=== PATIENT | male | born 1995 | race Caucasian/White ===

== ENCOUNTER 2016-10-26 09:40 | Emergency (ER) | payer BC, MEDICAID ==
[~2016-10-26] VITALS: Ht 177.8 cm; Wt 68.0 kg
[~2016-10-26 09:40] MED LIST: CLARITIN 10MG T10 MG PO; KEFLEX500 M1 PO; TYLENOL W/CODEI1 TA2 PO
--- OUTSIDE RECORDS SUMMARY | 2016-10-26 09:44 | External Medical Summary Rpt ---
Author Author , ZENON YARBROUGH Address Unknown Phone [email or web address] Care Team Providers Care Shader And Toner Name Role Phone LOVE ALL, LOVE ALL Unavailable Unavailable [facility], [facility] Un[facility] Unavailable [facility]available [facility], [facility] LEONARDO GRE, Unavailable Unavailable LEONARDO GRE LEONARDO GRE, Unavailable Unavailable [facility] KENJI BARRETT, Unavailable Unavailable PHILLIP JAM REILLYEK MOH, BRYON MOH Unavailable Unavailable Purpose Continuity of Care Document - 12-18-2014 through 2016 Problems Code Diagnosis DOS Provider Status [id number] ANISOCORIA 10-30-2015 [facility] H527 UNSPECIFIED 09-26-2015 [facility] REFRACTION H538 OTHER 09-26-2015 [facility] [facility] S H5704 MYDRIASIS 09-26-2015 [facility] 65400 OTHER 12-18-2014 [facility] VISUAL GRE DISTORTIONS AND ENTOPTIC PHENOMENA 58402 OTHER 12-18-2014 [facility] VITREOUS GRE OPACITIES 21814 PAIN IN [place] 12-18-2014 [facility] Procedures Procedure DOS Code Location Performer Comment [facility] [address] UNCLASSIF [id number] [facility] I[facility] DRUGS 6 [place] [address] [place] [facility] HEAD/BRAI 6 MEDICAL N W/O & IMAGING W/CONTRAS ASS T MATERIAL Encounters Encounter Start End Date Code Location Performer Type Date OFFICE 27207 STACI PHILLIP OUTPATIEN 6 6 EYE JAM T [facility] CENTER, MINUTES [facility] - 6 6 [facility] OUTPATIEN INC [facility] JENNIE - 6 6 [facility] OUTPATIEN INC T EMERGENCY 91682 JENN[facility] 6 6 [facility] DEPARTMEN INC T VISIT LOW/MODER SEVERITY EMERGENCY 21716 MIL[facility]ROS [facility] 6 6 PHYSICIAN DEPARTMEN S, [facility] T VISIT MODERATE SEVERITY OFFICE 34732 [facility] 5 5 GRE GRE T VISIT 15 MINUTES
--- OUTSIDE RECORDS SUMMARY | 2016-10-26 09:44 | External Medical Summary Rpt ---
Author Author , ZENON YARBROUGH Address Unknown Phone [email or web address] Care Team Providers Care Regulatory Leader Name Role Phone LOVE ALL, LOVE ALL Unavailable Unavailable [facility] Unavailable Unavailable INC, [facility], Unavailable Unavailable [facility]., [facility] Unavailable Unavailable IM[facility]ING [facility], [facility] LEONARDO GRE, Unavailable Unavailable LEONARDO GRE LEONARDO GRE, Unavailable Unavailable LEONARDO GRE KENJI BARRETT, Unavailable Unavailable PHILLIP JAM REILLYEK MOH, BRYON MOH Unavailable Unavailable Purpose Continuity of Care Document - 12-18-2014 through 2016 Problems Code Diagnosis DOS Provider Status [id number] ANISOCORIA 10-30-2015 [facility] H527 UNSPECIFIED 09-26-2015 [facility] INC REFRACTION H538 OTHER 09-26-2015 [facility] S H5704 MYDRIASIS 09-26-2015 [facility] 62075 OTHER 12-18-2014 LEON[facility]O VISUAL GRE DISTORTIONS AND ENTOPTIC PHENOMENA 59180 OTHER 12-18-2014 LE[facility]O VITREOUS GRE OPACITIES 83573 PAIN IN OR 12-18-2014 [facility] GRE Procedures Procedure DOS Code Location Performer Comment DETERMINA 87895 [facility]IV [facility], [facility] UNCLASSIF [id number] [facility] IED DRUGS [place] [address] [place] [facility] HEAD/BRAI 6 MEDICAL N W/O & IMAGING W/CONTRAS ASS T MATERIAL Encounters Encounter Start End Date Code Location Performer Type Date OFFICE 39772 STACI PHILLIP OUTPATIEN 6 6 EYE JAM T [facility], [facility]ES [facility] JENN[facility] - 6 6 [facility] OUTPATIEN INC [facility] JENNIE - 6 6 [facility] OUTPATIEN INC T EMERGENCY 56783 JENNIE 6 6 [facility] DEPARTMEN INC T VISIT LOW/MODER SEVERITY EMERGENCY 68828 [facility] 6 6 PHYSICIAN DEPARTMEN S, [facility] T VISIT MODERATE SEVERITY OFFICE 29022 [facility] 5 5 GRE GRE T VISIT 15 MINUTES
--- OUTSIDE RECORDS SUMMARY | 2016-10-26 09:45 | External Medical Summary Rpt ---
Author Author , ZENON YARBROUGH Address Unknown Phone [email or web address] Care Team Providers Care Tire Spotter Name Role Phone LOVE ALL, LOVE ALL Unavailable Unavailable [facility] Un[facility] Unavailable INC, [facility], Unavailable Unavailable [facility] Unavailable Unavailable IM[facility]ING [facility], [facility] LEONARDO GRE, Unavailable Unavailable LEONARDO GRE LEONARDO GRE, Unavailable Unavailable LEONARDO GRE KENJI BARRETT, Unavailable Unavailable PHILLIP JAM SADEK MOH, SADEK MOH Unavailable Unavailable Purpose Continuity of Care Document - 12-18-2014 through 2016 Problems Code Diagnosis DOS Provider Status [id number] ANISOCORIA 10-30-2015 [facility] H527 UNSPECIFIED 09-26-2015 [facility] REFRACTION H538 OTHER 09-26-2015 [place] [facility] S H5704 MYDRIASIS 09-26-2015 [facility] 86876 OTHER 12-18-2014 LEONARDO VISUAL GRE DISTORTIONS AND ENTOPTIC PHENOMENA 81665 OTHER 12-18-2014 LEONARDO VITREOUS GRE OPACITIES 08575 PAIN IN [place] 12-18-2014 [facility] Procedures Procedure DOS Code Location Performer Comment DETERMINA 86532 [facility], [facility] UNCLASSIF [id number] JENNIE JENNIE IED DRUGS [place] [address] [place] LOVE ALL HEAD/BRAI 6 MEDICAL N W/O & IMAGING W/CONTRAS ASS T MATERIAL Encounters Encounter Start End Date Code Location Performer Type Date OFFICE 56[address] [facility] 6 6 EYE JAM T [facility] C[facility], MINUTES [facility] JENNIE - 6 6 [facility] OUTPATIEN INC T EMERGENCY 31753 JENNIE 6 6 [facility] DEPARTMEN INC T VISIT LOW/MODER SEVERITY EMERGENCY 78729 MIL[facility]ROS [facility] 6 6 [facility]my [facility] T VISIT MODERATE SEVERITY HOSPITAL [facility]ENN[facility] - 6 6 [facility] T OFFICE [address] [facility] GRE GRE T VISIT 15 MINUTES
--- OUTSIDE RECORDS SUMMARY | 2016-10-26 09:45 | External Medical Summary Rpt ---
Demographics Preferred Language Sami Marital Status Unknown Mandaen Affiliation Unknown Race Unknown Ethnic Group Unknown Author Author , ZENON YARBROUGH Address Unknown Phone Immunization Unable to retrieve immunization data due to connection failure with Immunization Registry. Please try again later.
--- OUTSIDE RECORDS SUMMARY | 2016-10-26 09:45 | External Medical Summary Rpt ---
Author Author , ZENON YARBROUGH Address Unknown Phone [email or web address] Team Providers Care Rigging Loft Mechanic Name Role Phone LOVE ALL, LOVE ALL Unavailable Unavailable [facility] Unavailable Unavailable INC, [facility], Unavailable Unavailable [facility]., [facility] Unavailable Unavailable IM[facility], [facility] LEONARDO GRE, Unavailable Unavailable LEOANRDO GRE LEONARDO GRE, Unavailable Unavailable LEONARDO GRE KENJI BARRETT, Unavailable Unavailable PHILLIP JAM SADEK MOH, SADEK MOH Unavailable Unavailable Purpose Continuity of Care Document - 12-18-2014 through 2016 Problems Code Diagnosis DOS Provider Status [id number] ANISOCORIA 10-30-2015 [facility] H527 UNSPECIFIED 09-26-2015 [facility] INC REFRACTION H538 OTHER 09-26-2015 [facility] S H5704 MYDRIASIS 09-26-2015 [facility] 31927 OTHER 12-18-2014 LEONARDO VISUAL GRE DISTORTIONS AND ENTOPTIC PHENOMENA 79819 OTHER 12-18-2014 LE[facility]O VITREOUS GRE OPACITIES 43333 PAIN IN [place] 12-18-2014 [facility] Procedures Procedure DOS Code Location Performer Comment DETERMINA [address] [facility], [facility] UNCLASSIF [id number] JENNIE JENNIE IED DRUGS 6 [place] [address] [place] [facility] HEAD/BRAI 6 MEDICAL N W/O & IMAGING W/CONTRAS ASS T MATERIAL Encounters Encounter Start End Date Code Location Performer Type Date OFFICE 31467 [facility] 6 6 EYE JAM T [facility] CENTER, MINUTES [facility] JENNIE - 6 6 [facility] OUTPATIEN INC T EMERGENCY 42471 JENNIE 6 6 [facility] DEPARTMEN INC T VISIT LOW/MODER SEVERITY EMERGENCY 28570 [facility]ROS [facility] 6 6 [facility] T VISIT MODERATE SEVERITY HOSPITAL JENNIE - 6 6 [facility] T OFFICE [address]137 [facility] 5 5 GRE GRE T VISIT 15 MINUTES
--- OUTSIDE RECORDS SUMMARY | 2016-10-26 09:45 | External Medical Summary Rpt ---
Author Author ZENON An, [employer] Address Unknown Phone Unavailable
--- OUTSIDE RECORDS SUMMARY | 2016-10-26 09:45 | External Medical Summary Rpt ---
Author Author ZENON An, [employer] Address Unknown Phone Unavailable
--- OUTSIDE RECORDS SUMMARY | 2016-10-26 09:45 | External Medical Summary Rpt ---
Demographics Preferred Language Nepali Marital Status Unknown Jain Affiliation Unknown Race Unknown Ethnic Group Unknown Author Author , ZENON YARBROUGH Address Unknown Phone Immunization Unable to retrieve immunization data due to connection failure with Immunization Registry. Please try again later.
--- NOTE | 2016-10-26 10:06 | Urgent Treatment Center Report ---
History of Present Issue Date/Time Seen by Provider 10/26/16 0953 Visit Reason Pt arrived:Walked Presenting Problem:PT STATES NAUSEA, FEVER, HEADACHE, SORE THROAT SINCE WEDNESDAY NIGHT Location if Accident: Onset of symptoms date/time:10/24/16/ or onset unknown for:MEDICAL HX UNKNOWN Have you (or family members/close friends) recently traveled outside [facility]? N If Yes, where/when: Have you had exposure to infectious disease within the past month? TB? Other? Specify: c/o fever, sore throat, headache. Started w/ sore throat and mild headache Wednesday morning, 2 days ago. Woke up yesterday "with it full force". Body aches , chills, worse sore throat and headache, fever 102. Fever later jani to 103. Tylenol and ibuprofen help. Ibuprofen last yesterday around 3pm and tylenol last around 0830 this morning. Headache better when fever gone. Sore throat constant. Raw. No known sick contacts. Hasn't taken or tried anything else. "I feel like I have pneumonia". Denies cough, SOA, chest pain. Finally reports he feels that way because of the same aches and chills he had w/ pneumonia. Source patient Exam Limitations no limitations ALLERGIES Coded Allergies: Penicillins (Intermediate, 09/14/15) Home Medications Reported Medications Loratadine (Claritin 10MG) 10 MG PO DAILY History Medical History General CAD? No Angina: No FL: No Hypertension? No Hyperlipidemia? No CHF? No DVT? No PE? No COPD? No Asthma? Yes Anemia? No GERD? No Gastric ulcers? No GI Bleed? No Hernia? No Thyroid Problems? No Hypothyroidism? No CVA? No Seizures? No Diabetes? No Renal Insuffiency? No UTI? No Stones? No GB Disease: No Nephritic Syndrome? No Asplenia? No Hepatitis? No Sickle Cell Disease? No Arthritis? No Migraines? No Cataracts? No Glaucoma? No MRSA? No HIV? No TB? No Anxiety? No Depression? No Cancer? No Site: N Immunization HX DT/Tetanus NOT SURE Surgical Hx Previous Surgery?N Social History Smoking Hx Smoker: Never Smoker Tobacco: No Alcohol Alcohol: No Review of Systems All Other Systems Reviewed and Negative Constitutional see HPI Eyes denies drainage ENT see HPI. denies: ear pain, nose discharge, nose congestion, throat swelling. Respiratory see HPI Cardiovascular see HPI Gastrointestinal denies no symptoms reported Skin denies rash Psychiatric/Neurological see HPI Physical Exam Vital Signs Vital Signs Date Time Temp Pulse Resp B/P Pulse O2 O2 Flow FiO2 Ox Delivery Rate 10/26 0948 98.2 102 20 130/94 99 General Appearance normal appearance, no apparent distress Eye Exam - bilateral eye normal exam Ear, Nose, Throat normal ENT inspection (x/mild pharyngeal erythema) Neck normal inspection, non-tender, supple, full range of motion Respiratory Status No: respiratory distress, productive cough, non productive cough. Lung Sounds bilateral: lungs clear (anterior, posterior, laterally). Cardiovascular regular rate/rhythm, no peripheral edema, no murmur Neurologic alert, oriented x 3 Mental status normal mood/affect Skin warm/dry Lymphatic no adenopathy Medical Decision Making LABS/Meds/Orders Pt receiving controlled substance in ED? No Results/Orders Laboratory Tests 10/26/16 1000: Group A Strep Screen NOT DETECTED Orders Procedure Date/time Status [facility] STREP SCREEN 10/26 0858 Complete Departure Departure Time of Disposition 1019 Disposition DC Home or Self Care(routine) Clinical Impression Primary Impression: Acute viral pharyngitis Condition STABLE Referrals JOSE ALEJANDRO GARDUNO APRN (Family) Follow up IMMEDIATELY for new or worsening symptoms OR no noticeable improvement over the next 48-72 hours. 911 for difficulty breathing or swallowing. Patient Instructions DI for Viral Pharyngitis Additional Instructions * No sign of bacterial infection. Likely viral. Virus can take 7-14 days to run their course * Monitor Temp. Tylenol every 4-6 hours as needed and/or ibuprofen every 6 hours as needed (as long as your primary care doctor has told you that it is ok to take both) for fever/aches/pain. ER if fever no less than 101 despite tylenol and ibuprofen * Encourage fluids, water, gatorade, powerade, pedialyte if infant/toddler/child * warm salt water gargles * warm fluids * sore throat lozenges * sleep elevated * humidifier/vaporizer * * Your throat swab was sent for culture. Those results are typically sent to your primary care. Be sure to follow up in 2-3 days if no improvement so they can review those results and treat if necessary. If you don't have primary care, I recommend you get one but in the mean time, you will have to return to a walk in clinic. Follow up IMMEDIATELY for new or worsening symptoms OR no noticeable improvement over the next 48-72 hours. 911 for difficulty breathing or swallowing. Discharge Counseling Counseled pt/family regarding diagnosis, test results, medications/RX, home care, follow up needs at 1020
[2016-10-26 10:24] VITALS: BP 130/94
[2016-10-29] MEDS ORDERED: ZITHROMAX Z-PA250 M2 PO (04:45)
== END 2016-10-26 10:25 | disposition home or self-care (01) ==
LOC: UTC 09:40
DX: J02.9 Acute pharyngitis, unspecified (principal)